=== PATIENT | female | born 1940 | race Caucasian/White ===

== ENCOUNTER 2020-02-23 16:23 | Inpatient (IN) ==
[2020-02-23] MEDS ORDERED: ONDANSETRON HCL/PF 2 MG/ML VIAL IV ONE (16:40)
[2020-02-23] MEDS ORDERED: NORMAL SALINE 1,000 ML IV ONE (16:40)
[2020-02-23] MEDS ORDERED: HYDROmorphone HCL 1 MG/ML DISP.SYRIN IV ONE (16:41)
--- NOTE | 2020-02-23 16:47 | ERNOTE ---
Abdominal HPI - Narrative Date of Service: 02/23/20 - General Chief Complaint: Abdominal Pain Time Seen by Provider: 02/23/20 16:28 Source: patient Exam Limitations: clinical condition - She appears to be in significant pain and does not seem to want to answer questions. - Immun/Allergies/Home Medications Immunizatons: IMMUNIZATION HX Immunizations Up to Date Yes History of Influenza Vaccine Yes Hx Pneumococcal Vaccination No Allergies/Adverse Reactions: Allergies lorazepam Adverse Reaction (Verified 02/23/20 16:28) unsure Home Medications: HOME MEDICATIONS Citalopram Hydrobromide [Celexa] 20 mg PO DAILY 04/29/15 [Last Taken 04/29/15] amLODIPine BESYLATE [Norvasc] 5 mg PO DAILY 04/29/15 [Last Taken 04/29/15] ascorbic acid (vitamin C) 1,000 mg tablet 1 g PO DAILY 09/03/17 [Last Taken Unknown] aspirin 81 mg tablet,delayed release 81 mg PO DAILY 09/03/17 [Last Taken Unknown] biotin 1 mg capsule 1 mg PO DAILY 09/03/17 [Last Taken Unknown] multivitamin 1 cap PO DAILY 09/03/17 [Last Taken Unknown] omega-3 fatty acids-fish oil 300 mg-1,000 mg capsule 1 cap PO BID 09/03/17 [Last Taken Unknown] Pravastatin Sodium 40 mg PO DAILY 02/23/20 [Last Taken Unknown] Sennosides [Senna] 8.6 mg PO DAILY 02/23/20 [Last Taken Unknown] - History of Present Illness Narrative: This patient is a 79-year-old female who arrived by ambulance with severe abdominal pain. She said the pain began about 1 PM, 3.5 hours ago. The pain began in the lower abdomen and is since spread up to the top. She has difficult time describing the pain but says that it is a terrible pain and cramping. The pain is worse with deep breath and movement. It gets sharp. She has been nauseated. She vomited a couple hours ago. She feels like she needs to have a bowel movement. She gave herself an enema without results. She has not had anything like this in the past. She denies prior abdominal surgery. She denies fever. She denies urinary symptoms. Review of Systems - Narrative Narrative: She has an allergy listed to lorazepam but does know the reaction. - Review of Systems Constitutional: Absent: recent illness, fever ENT: Absent: ear pain, nose congestion, nasal drainage, sore throat Respiratory: Present: other - Her abdomen hurts worse when she breathes.. Absent: shortness of breath, cough Cardiology: Absent: chest pain, syncope Gastrointestinal/Abdominal: Present: nausea, vomiting, abdominal pain. Absent: diarrhea, constipation Genitourinary: Absent: frequency, pain, dysuria, hematuria Musculoskeletal: Present: no symptoms reported Skin: Absent: rash Neurological: Absent: headache Endocrine: Present: other - No diabetes Hematologic/Lymphatic: Present: other - No blood thinner Psych: Present: no symptoms reported Medical History (Last Reviewed 02/23/20 @ 16:45 by Colin Murphy MD) Arthritis Onset Date: ~07/08/12 arthritic changes rt 3rd finger tip Cough Depression Hypertension Onset Date: ~06/23/12 Infection of shoulder Onset Date: 04/26/17 Right shoulder Leg pain Onset Date: ~08/11/13 left, radicular, dramatically improved Lower back pain Onset Date: ~08/30/13 with left leg radicaulopathy-improving Surgical History: Surgical History (Last Reviewed 02/23/20 @ 16:45 by Colin Murphy MD) History of colonoscopy Onset Date: 08/12/12 Dr. Lua. Normal History of colonoscopy Onset Date: 04/05/07 Dr. Lua, with Biopsy. Hyperplastic polyp. Scattered diverticulosis History of tonsillectomy as a child [place] teeth extracted Family History: Family History (Last Reviewed 02/23/20 @ 16:45 by Colin Murphy MD) Brother , age 30's MVA No problems noted. Brother Cancer Prostate Daughter Alive and well Father Cancer, Onset Age: 70 Prostate Mother Cancer, Onset Age: 69 lung cancer Sister Scleroderma Social History: (Last Reviewed 02/23/20 @ 16:45 by Colin Murphy MD) Social History: Marital status: household members: spouse number of children: 2 current occupational status: retired Service: No Tobacco: Smoking Status: Former smoker how long ago did patient quit smokin years Alcohol: alcohol intake: current Alcohol type: beer alcohol intake frequency: 0-2 drinks per day Substance Use: substance use type: does not use Dietary Habits: caffeine: Yes caffeine comment: x2 daily Type: coffee Exercise: frequency: does not exercise Physical Exam - Physical Exam General Appearance: Present: wd/wn, alert, moderate distress - She appears to be in pain. Head Exam: Present: normal inspection, no evidence of injury Eye Exam: Normal inspection: bilateral - She lies on the table with her eyes closed. Ears, Nose, Throat: Present: normal ENT inspection Neck: Present: normal inspection, supple. Absent: lymphadenopathy (R), lymphadenopathy (L) Respiratory: Present: no respiratory distress, normal breath sounds, no accessory muscle use, lungs clear Cardiovascular/Chest: Present: regular rate, rhythm, no murmur Gastrointestinal/Abdominal: Present: normal bowel sounds, nondistended, soft, no organomegaly, tenderness - She has diffuse tenderness with palpation., guarding - She has voluntary guarding throughout.. Absent: rebound Back Exam: Present: normal inspection, normal range of motion Extremity Exam: Present: normal inspection, non-tender, no edema Neurological Exam: Present: alert, oriented. Absent: normal mood/affect - Her mood and affect are consistent with being in pain. Skin Exam: Present: normal color, warm/dry Progress - Date and Time Seen: Date and Time: 02/23/20 19:26 Dr. Short agreed to take care of the patient in the hospital. The patient is agreeable to staying. - Results and Orders Patient's Lab Results:: I have reviewed the patient's lab results. Results and Orders: Laboratory Tests 02/23/20 02/23/20 02/23/20 16:55 16:55 16:55 WBC 15.2 H RBC 5.31 Hgb 15.7 Hct 50.0 H MCV 94.2 MCH 29.6 MCHC 31.4 L RDW 13.1 Plt Count 308 MPV 10.5 Neutrophils % (Manual) 73 Band Neuts % (Manual) 18 H Lymphocytes % (Manual) 6 L Monocytes % (Manual) 2 Eosinophils % (Manual) 1 Neutrophils # (Manual) 11.1 H Lymphocytes # (Manual) 0.9 L Monocytes # (Manual) 0.3 Eosinophils # (Manual) 0.2 Nucleated RBCs 1.0 Platelet Estimate Normal Giant Platelets Trace RBC Morphology Normal Sodium 142 Plasma Sodium 143 H Potassium 3.7 Chloride 104 Carbon Dioxide 25.1 Anion Gap 16.6 H BUN 18 Creatinine 1.01 Est GFR (Non-Af Amer) 56 L BUN/Creatinine Ratio 17.8 Random Glucose 140 H Lactic Acid, Venous 2.5 H* Calcium 9.3 Calcium Adj for Albumin 9.1 Total Bilirubin 0.7 AST 22 ALT 18 L Alkaline Phosphatase 74 Total Protein 7.4 Albumin 3.9 Lipase 128 - Vital Signs Patient's Vital Signs:: I have reviewed the patient's vital signs. Vital Signs: Vital Signs 02/23/20 16:24 Temperature 36.6 C Pulse Rate 78 Respiratory Rate 20 O2 Sat by Pulse Oximetry 97 - CT/Ultrasound CT/Ultrasound Narrative: CT Abdomen/Pelvis W/C *~ Exam Date: 02/23/2020 18:15 Ordering Physician: Colin Murphy MD CT Abdomen/Pelvis W/C * History: Severe abdominal pain nausea. Vomiting. Diarrhea. Pain after eating. Technique: Contrast enhanced CT images of the abdomen during the portal venous phase were obtained. Excretory phase images of the abdomen and pelvis were also obtained. Coronal reconstructions are submitted. Oral contrast was also administered. Individualized dose optimization technique was used for the performed procedure including automated exposure control, adjustment of the mA and/or kV according to patient size and/or the iterative reconstruction technique. Comparison: CT dated May 02, 2009. Findings: There are right middle lobe, right greater than left lower lung peripheral tree-in-bud and groundglass opacities, which may represent a infectious or inflammatory bronchiolitis or sequela of aspiration pneumonitis. Borderline card iomegaly. Liver, spleen, adrenal glands are unremarkable. Mild prominence of the pancreatic duct measuring 4 mm. No visualized pancreatic mass. No peripancreatic inflammatory change. The gallbladder is mildly distended with suggestion of focal layering sludge. No CT evidence of cholecystitis. The kidneys are unremarkable. Symmetric nephrograms. There is reflux of oral contrast into the distal esophagus. There is gastric distention with mild gastric antral wall thickening. Mild distention of the proximal duodenum. Fluid-filled distended, nondilated loops of small bowel noted in the left abdomen with mild wall thick. Loops of small bowel in the right abdomen are decompressed with a transition point identified in the right abdomen (axial image 56). There is mild diffuse mesenteric edema. No pneumatosis or portal venous gas. No CT evidence of appendicitis. Scattered air and stool throughout the colon. There is bowel wall thickening involving the ascending colon, hepatic flexure, mid to distal transverse colon, splenic flexure, descending colon, and most pronounced at the mid sigmoid colon and high rectum. There is pericolonic inflammatory change. No pneumatosis or portal venous gas. Calcified fibroid uterus. Urinary bladder is unremarkable. Small amount of pelvic free fluid. Normal caliber abdominal aorta. The abdominal aorta is intact. Scattered atherosclerotic changes. 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 Main portal vein, splenic vein, superior mesenteric vein are patent. No significant lymphadenopathy. No pneumoperitoneum. Low volume ascites with perihepatic ascites and free fluid in the bilateral lateral colonic gutters. No fluid collections. No hemoperitoneum. Small fat-containing umbilical hernia. No acute osseous findings. Degenerative changes noted. 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 IMPRESSION:Nonspecific pancolitis, most pronounced at the level of the sigmoid colon and high rectum. Mesenteric edema. There is no pneumatosis or portal venous gas. No free air. Additionally, there are findings concerning for a infectious or inflammatory enteritis and at least a partial small bowel obstruction as there is a transition point in the right abdomen. There is nonspecific gastric distention. Also, there is gastric antral wall thickening; correlate for peptic ulcer disease. Low volume ascites. Abnormal appearance of the lung bases, as above. Gastroesophageal reflux. Additional findings and comments are as above. Electronically signed by Chet Leach D.O.. - Progress/Reassessment Chief Complaint: Abdominal Pain Departure Clinical Impression: Abdominal pain, Lactic acidosis, Pancolitis, Small bowel obstruction - Departure Disposition: Still a patient Condition: Stable Referrals: Catherine Petit MD [Primary Care Provider] -
[2020-02-23 17:01] LABS: Hemoglobin 15.7 gm/dL (12.5-16.0); Mean Cell Volume 94.2 fl (78-100); Mean Corpuscular Hemoglobin 29.6 pg (27-31); Mean Corpuscular Hgb Conc 31.4 g/dl (32-36); Mean Platelet Volume 10.5 fl (8-12.5); Platelet Count 308 K/mm3 (150-450); Red Blood Count 5.31 M/mm3 (4.2-5.4); Red Cell Distribution Width 13.1 % (11.5-14.0); White Blood Count 15.2 K/mm3 (4.0-10.5)
[2020-02-23 17:05] LABS: Total Cells Counted 100
[2020-02-23] MEDS ORDERED: DIATRIZOATE MEGLUMINE, SODIUM 30 ML BTL ONE (17:12)
[2020-02-23] MEDS ORDERED: DIATRIZOATE MEGLUMINE, SODIUM 30 ML BTL PO ONE (17:13)
[2020-02-23 17:15] LABS: Albumin * 3.9 gm/dl (3.4-5.0); Anion Gap 16.6 mmol/L (6.8-13.8); BUN/Creatinine Ratio 17.8 (9.0-21.6); Bilirubin, Total 0.7 mg/dL (0.0-1.1); Ca. Corrected For Albumin 9.1 mg/dL (8.4-10.2); Calcium * 9.3 mg/dL (7.9-10.9); Carbon Dioxide 25.1 mmol/L (24-32.6); Potassium 3.7 mmol/L (3.4-4.6); Total Protein 7.4 gm/dL (6.2-8.2)
[2020-02-23 17:26] LABS: Band 18 % (0-2.0); Eosinophil 1 % (0-3); Lymphocyte 6 % (20-51); Monocyte 2 % (0-9); Neutrophil 73 % (42-75); Neutrophil # 11.1 K/mm3 (1.3-6.0)
[2020-02-23 17:30] LABS: Giant Platelets Trace; Platelet Estimate Normal (NORMAL); RBC Morphology Normal (NORMAL)
[2020-02-23] MEDS ORDERED: HYDROmorphone HCL 1 MG/ML DISP.SYRIN IV PRN (18:47)
[2020-02-23] MEDS: HYDROmorphone HCL 1 MG/ML DISP.SYRIN IV PRN ×3 (18:55→20:03)
[2020-02-23] MEDS ORDERED: PIPERACILLIN SODIUM/TAZOBACTAM 4.5 GM in DEXTROSE 5 % IN WATER 100 ML IV ONE ×2 (19:02)
[2020-02-23 21:45] LABS: Urine Bilirubin 1 mg/dl (NEGATIVE); Urine Blood Negative /ul (NEGATIVE); Urine Ketone 5 mg/dL (NEGATIVE); Urine Nitrite Negative (NEGATIVE); Urine Protein Negative (NEGATIVE); Urine Specific Gravity 1.015 SP.GR. (1.005-1.010); Urine Urobilinogen Normal (NORMAL)
[2020-02-23 21:55] LABS: Urine Appearance Clear (CLEAR); Urine Color Dark Yellow
[2020-02-23 21:56] LABS: Urine RBC None Seen /hpf (0-5); Urine WBC None Seen /hpf (0-5)
[2020-02-23 21:57] LABS: Urine Bacteria TRACE
[2020-02-24] MEDS: HYDROmorphone HCL 1 MG/ML DISP.SYRIN IV PRN (06:57)
[2020-02-24] MEDS ORDERED: PHENOL 180 SPRAY BTL MM PRN (11:22)
[2020-02-24 11:59] LABS: Hematocrit 45.2 % (37.0-47.0); Hemoglobin 14.1 gm/dL (12.5-16.0); Mean Cell Volume 95.6 fl (78-100); Mean Corpuscular Hemoglobin 29.8 pg (27-31); Mean Corpuscular Hgb Conc 31.2 g/dl (32-36); Mean Platelet Volume 10.6 fl (8-12.5); Neutrophil # 12.9 K/mm3 (1.3-6.0); Neutrophil % 82.1 % (42-75.0); Platelet Count 282 K/mm3 (150-450); Red Blood Count 4.73 M/mm3 (4.2-5.4); Red Cell Distribution Width 13.3 % (11.5-14.0); White Blood Count 15.6 K/mm3 (4.0-10.5)
[2020-02-24 12:15] LABS: Albumin * 3.4 gm/dl (3.4-5.0); Anion Gap 15.4 mmol/L (6.8-13.8); BUN/Creatinine Ratio 22.1 (9.0-21.6); Bilirubin, Total 0.6 mg/dL (0.0-1.1); Ca. Corrected For Albumin 9.3 mg/dL (8.4-10.2); Calcium * 9.1 mg/dL (7.9-10.9); Carbon Dioxide 24.9 mmol/L (24-32.6); Potassium 4.3 mmol/L (3.4-4.6); Total Protein 7.2 gm/dL (6.2-8.2)
[2020-02-24] MEDS: LEVOFLOXACIN IN DEXTROSE 5 % 750 MG/150 ML BAG IV SCH (12:46)
[2020-02-24] MEDS ORDERED: KETOROLAC TROMETHAMINE 30 MG/ML VIAL IV PRN (15:58)
--- NOTE | 2020-02-24 21:45 | HP ---
Chief Complaint - Chief Complaint Date of Service: 02/24/20 Time of Service: 09:00 Chief Complaint: Abdominal pain History of Present Illness: Leni is a 79yo female that prsents with abdominal pain that began yesterday. She reports attempting to have a bowel movement but was only able to pass liquid stool. She denies fever, bloody stool. She does admit to nausea and vomiting. Emesis was food contents, non-bloody. She denies any recent change in diet, sick contacts, or new medications. She has not had abdominal surgeries. No history of bowel disease or obstruction. She reports to passing gas. She reports normal colonoscopies but believes she gets them every 3 years. She denies colon polyps, cancer, or family history of colon disease. She denies coughing or shortness of breath but does report to abdominal pain with deep inhalation. She presented to the ER due to the abdominal pain. Labs were significant for elevated WBC and CT of abdomen that showed colitis and partial small bowel obstruction. She was given NG tube and chest xray was completed which showed bilateral lower lob opacities. She reports history of tree and bud inflammation in chest xrays in the past. Medical History (Last Reviewed 02/23/20 @ 21:47 by Cecile Martines RN) Arthritis Onset Date: ~07/08/12 arthritic changes rt 3rd finger tip Cough Depression Hypertension Onset Date: ~06/23/12 Infection of shoulder Onset Date: 04/26/17 Right shoulder Leg pain Onset Date: ~08/11/13 left, radicular, dramatically improved Lower back pain Onset Date: ~08/30/13 with left leg radicaulopathy-improving Surgical History: Surgical History (Last Reviewed 02/23/20 @ 21:47 by Cecile Martines RN) History of colonoscopy Onset Date: 08/12/12 Dr. Lua. Normal History of colonoscopy Onset Date: 04/05/07 Dr. Lua, with Biopsy. Hyperplastic polyp. Scattered diverticulosis History of tonsillectomy as a child [place] teeth extracted Family History: Family History (Last Updated 02/23/20 @ 21:46 by Cecile Martines, RN) Brother , age 30's MVA No problems noted. Brother Cancer Prostate Daughter Alive and well 2 daughters Father Cancer, Onset Age: 70 Prostate Mother Cancer, Onset Age: 69 lung cancer Sister Scleroderma Social History: (Last Reviewed 02/23/20 @ 21:47 by Cecile Martines RN) Social History: Marital status: household members: spouse number of children: 2 current occupational status: retired Service: No Tobacco: Smoking Status: Former smoker how long ago did patient quit smokin years Alcohol: alcohol intake: current Alcohol type: beer alcohol intake frequency: 0-2 drinks per day Substance Use: substance use type: does not use Dietary Habits: caffeine: Yes caffeine comment: x2 daily Type: coffee Exercise: frequency: does not exercise Review Of Systems (GEN) - Review of Systems Generalized/Overall Review: Absent: Weakness, Chills, Fever, Fatigue, Weight loss, Weight gain EENTM: Present: No Symptoms Reported Respiratory: Absent: Cough, Shortness of Breath Cardiac: Absent: Chest Pain, Edema Abdominal: Present: Nausea, Vomiting, Abdominal Pain. Absent: Hematemesis, M pranav, Bright blood from rectum Genitourinary: Absent: Burning, Frequency Musculoskeletal: Present: No Symptoms Reported Neurological: Present: Headache. Absent: Weakness Skin: Present: No Symptoms Reported Endocrine: Present: No Symptoms Reported Immunizations: IMMUNIZATION HX Immunizations Up to Date Yes History of Influenza Vaccine Yes Hx Pneumococcal Vaccination No Allergies/Adverse Reactions: Allergies Allergy/AdvReac Type Severity Reaction Status Date / Time lorazepam AdvReac Verified 02/23/20 16:28 Home Medications: HOME MEDICATIONS Citalopram Hydrobromide [Celexa] 30 mg PO DAILY 04/29/15 [Last Taken 04/29/15] amLODIPine BESYLATE [Norvasc] 5 mg PO DAILY 04/29/15 [Last Taken 04/29/15] aspirin 81 mg tablet,delayed release 81 mg PO DAILY 09/03/17 [Last Taken Unknown] Pravastatin Sodium 40 mg PO DAILY 02/23/20 [Last Taken Unknown] Sennosides [Senna] 17.2 mg PO DAILY 02/23/20 [Last Taken Unknown] Dextromethorphan Polistirex [Delsym] 90 ml PO BID PRN 02/24/20 [Last Taken Unknown] Multivitamin [Multivitamins] 1 ea PO DAILY 02/24/20 [Last Taken Unknown] [place] Oil/[place]-3 Fatty Acids [Fish Oil] 1,200 mg PO Q7D 02/24/20 [Last Taken Unknown] Exam - Exam Vital Signs: Vital Signs - Last Taken Temp 36.4 C 02/24/20 18:53 Pulse 75 02/24/20 18:53 Resp 16 02/24/20 18:53 BP 125/44 02/24/20 18:53 Pulse Ox 93 02/24/20 18:53 Comprehensive Narrative: NG tube in place set to suction Constitutional: Present: Alert, Oriented x3, Cooperative ENT Exam: Present: hearing grossly normal Eye Exam: bilateral eye: normal inspection Respiratory: Present: chest non-tender, lungs clear, normal breath sounds, no respiratory distress Cardiovascular/Chest: Present: regular rate, rhythm, no murmur Peripheral Pulses: radial (R): 2+, radial (L): 2+ Abdomen: Present: soft, tender - diffuse, hypoactive Extremity: Present: normal inspection Skin Exam: Present: normal color, warm/dry, no cyanosis Lymphatic: Present: no adenopathy Neurologic: Present: alert, normal mood/affect, oriented x 3 Appearance: Present: appropriate appearance, appropriate insight Eye contact: Present: cooperative, good eye contact, normal speech Thoughts: Present: normal thought pattern, no apparent hallucination Diagnostic Studies: Abnormal Lab Results 02/23/20 02/24/20 02/24/20 Range/Units 21:30 11:52 11:52 WBC 15.6 H (4.0-10.5) K/mm3 MCHC 31.2 L (32-36) g/dl Immature Gran # (Auto) 0.04 H (0.000-0.0310) K/mm3 Neutrophils % 82.1 H (42-75.0) % Lymphocytes % 8.4 L (20-51) % Neutrophils # 12.9 H (1.3-6.0) K/mm3 Lymphocytes # 1.31 L (1.5-3.5) k/mm3 Monocytes # 1.4 H (0.0-1.0) k/mm3 Anion Gap 15.4 H (6.8-13.8) mmol/L BUN/Creatinine Ratio 22.1 H (9.0-21.6) Random Glucose 117 H (70-110) mg/dL Urine Bilirubin 1 H (NEGATIVE) mg/dl Microbiology 02/23/20 16:55 Blood Culture - Preliminary Blood NO GROWTH 24 HOURS 02/23/20 16:40 Blood Culture - Preliminary Blood NO GROWTH 24 HOURS Laboratory Results WBC 15.6 K/mm3 (4.0-10.5) H 02/24/20 11:52 RBC 4.73 M/mm3 (4.2-5.4) 02/24/20 11:52 Hgb 14.1 gm/dL (12.5-16.0) 02/24/20 11:52 Hct 45.2 % (37.0-47.0) 02/24/20 11:52 MCV 95.6 fl (78-100) 02/24/20 11:52 MCH 29.8 pg (27-31) 02/24/20 11:52 MCHC 31.2 g/dl (32-36) L 02/24/20 11:52 RDW 13.3 % (11.5-14.0) 02/24/20 11:52 Plt Count 282 K/mm3 (150-450) 02/24/20 11:52 MPV 10.6 fl (8-12.5) 02/24/20 11:52 Immature Gran % (Auto) 0.30 % (0.001-0.429) 02/24/20 11:52 Immature Gran # (Auto) 0.04 K/mm3 (0.000-0.0310) H 02/24/20 11:52 Neutrophils % 82.1 % (42-75.0) H 02/24/20 11:52 Neutrophils % (Manual) 73 % (42-75) 02/23/20 16:55 Band Neuts % (Manual) 18 % (0-2.0) H 02/23/20 16:55 Lymphocytes % 8.4 % (20-51) L 02/24/20 11:52 Lymphocytes % (Manual) 6 % (20-51) L 02/23/20 16:55 Monocytes % 8.8 % (0.0-9) 02/24/20 11:52 Monocytes % (Manual) 2 % (0-9) 02/23/20 16:55 Eosinophils % 0.1 % (0.0-3.0) 02/24/20 11:52 Eosinophils % (Manual) 1 % (0-3) 02/23/20 16:55 Basophils % 0.3 % (0.0-1.0) 02/24/20 11:52 Nucleated RBC % 0.0 k/mm3 (0-1) 02/24/20 11:52 Neutrophils # 12.9 K/mm3 (1.3-6.0) H 02/24/20 11:52 Neutrophils # (Manual) 11.1 K/mm3 (1.3-6.0) H 02/23/20 16:55 Lymphocytes # 1.31 k/mm3 (1.5-3.5) L 02/24/20 11:52 Lymphocytes # (Manual) 0.9 k/mm3 (1.5-3.5) L 02/23/20 16:55 Monocytes # 1.4 k/mm3 (0.0-1.0) H 02/24/20 11:52 Monocytes # (Manual) 0.3 k/mm3 (0.0-1.0) 02/23/20 16:55 Eosinophils # 0.0 k/mm3 (0.0-0.7) 02/24/20 11:52 Eosinophils # (Manual) 0.2 k/mm3 (0.0-0.7) 02/23/20 16:55 Absolute Basophils 0.0 k/mm3 (0.0-0.1) 02/24/20 11:52 Nucleated RBCs 1.0 % (0-1) 02/23/20 16:55 Platelet Estimate Normal (NORMAL) 02/23/20 16:55 Giant Platelets Trace 02/23/20 16:55 RBC Morphology Normal (NORMAL) 02/23/20 16:55 Sodium 141 mmol/L (132-142) 02/24/20 11:52 Plasma Sodium 141 mmol/L (130-142) 02/24/20 11:52 Potassium 4.3 mmol/L (3.4-4.6) 02/24/20 11:52 Chloride 105 mmol/L (97-106) 02/24/20 11:52 Carbon Dioxide 24.9 mmol/L (24-32.6) 02/24/20 11:52 Anion Gap 15.4 mmol/L (6.8-13.8) H 02/24/20 11:52 BUN 21 mg/dL (3-23) 02/24/20 11:52 Creatinine 0.95 mg/dL (0.4-1.4) 02/24/20 11:52 Est GFR (Non-Af Amer) 61 mL/min (60-130) 02/24/20 11:52 BUN/Creatinine Ratio 22.1 (9.0-21.6) H 02/24/20 11:52 Random Glucose 117 mg/dL (70-110) H 02/24/20 11:52 Lactic Acid, Venous 0.9 mmol/L (0.4-2.0) 02/23/20 19:40 Calcium 9.1 mg/dL (7.9-10.9) 02/24/20 11:52 Calcium Adj for Albumin 9.3 mg/dL (8.4-10.2) 02/24/20 11:52 Total Bilirubin 0.6 mg/dL (0.0-1.1) 02/24/20 11:52 AST 28 U/L (0-48) 02/24/20 11:52 ALT 19 U/L (19-67) 02/24/20 11:52 Alkaline Phosphatase 61 U/L (50-170) 02/24/20 11:52 Total Protein 7.2 gm/dL (6.2-8.2) 02/24/20 11:52 Albumin 3.4 gm/dl (3.4-5.0) 02/24/20 11:52 Lipase 128 U/L (73-393) 02/23/20 16:55 Procalcitonin 0.40 ng/mL (0.05-0.50) 02/23/20 16:55 Urine Color Dark yellow 02/23/20 21:30 Urine Appearance Clear (CLEAR) 02/23/20 21:30 Urine pH 5.0 pH (5.0-7.0) 02/23/20 21:30 Ur Specific [place] 1.015 SP.GR. (1.005-1.010) 02/23/20 21:30 Urine Protein Negative mg/dL (NEGATIVE) 02/23/20 21:30 Urine Glucose (UA) Negative mg/dL (NEGATIVE) 02/23/20 21:30 Urine Ketones 5 mg/dL (NEGATIVE) 02/23/20 21:30 Urine Blood Negative /ul (NEGATIVE) 02/23/20 21:30 Urine Nitrate Negative (NEGATIVE) 02/23/20 21:30 Urine Bilirubin 1 mg/dl (NEGATIVE) H 02/23/20 21:30 Urine Urobilinogen Normal EU/dl (NORMAL) 02/23/20 21:30 Ur Leukocyte Esterase Negative /ul (NEGATIVE) 02/23/20 21:30 Urine RBC None seen /hpf (0-5) 02/23/20 21:30 Urine WBC None seen /hpf (0-5) 02/23/20 21:30 Ur Epithelial Cells Trace /hpf (0-5) 02/23/20 21:30 Urine Bacteria Trace (NONE) 02/23/20 21:30 Urine Culture Comments No culture indicated 02/23/20 21:30 SARS-CoV-2 (PCR) Not detected (NotDetected) 02/23/20 19:13 Assessment/Plan - Narrative Narrative: Will admit to acute inpatient status due to small bowel obstruction. Unknown etiology. No abdominal surgery history. Will make NPO, treat with NG tube and bowel rest. There is evidence of pancolitis and possible lung inflitrates although it sounds that this could be a chronic finding. Will treat with levaquin to cover GI and pulmonary pathogens in case this is an infectious colitis. Will advance diet as tolerated and clamp NG when improving. Holding home medications due to bowel rest, will restart as needed. - Assessment/Plan (1) Pancolitis Problem: Acute (2) Small bowel obstruction Problem: Acute (3) Essential hypertension Problem: Chronic
[2020-02-25 07:49] LABS: Hematocrit 41.1 % (37.0-47.0); Mean Cell Volume 95.4 fl (78-100); Mean Corpuscular Hemoglobin 30.2 pg (27-31); Mean Corpuscular Hgb Conc 31.6 g/dl (32-36); Mean Platelet Volume 10.8 fl (8-12.5); Neutrophil # 9.5 K/mm3 (1.3-6.0); Neutrophil % 83.7 % (42-75.0); Platelet Count 221 K/mm3 (150-450); Red Blood Count 4.31 M/mm3 (4.2-5.4); Red Cell Distribution Width 13.3 % (11.5-14.0); White Blood Count 11.3 K/mm3 (4.0-10.5)
[2020-02-25 08:02] LABS: Anion Gap 12.6 mmol/L (6.8-13.8); BUN/Creatinine Ratio 26.2 (9.0-21.6); Bilirubin, Total 0.8 mg/dL (0.0-1.1); Ca. Corrected For Albumin 9.3 mg/dL (8.4-10.2); Calcium * 8.8 mg/dL (7.9-10.9); Carbon Dioxide 26.9 mmol/L (24-32.6); Potassium 3.5 mmol/L (3.4-4.6); Total Protein 6.7 gm/dL (6.2-8.2)
[2020-02-25] MEDS: LEVOFLOXACIN IN DEXTROSE 5 % 750 MG/150 ML BAG IV SCH (12:47)
[2020-02-25] MEDS: LEVOFLOXACIN 750 MG TABLET PO SCH (13:02)
--- NOTE | 2020-02-25 21:24 | PN ---
Subjective - Date and Time Seen Date: 02/25/20 Time: 08:00 Subjective Narrative: Leni reports feeling better today. Pain improved, she has an appetite, she is passing stool and gas. Objective - Vitals Vitals: Last Vital Signs Temp 37.2 C 02/25/20 16:02 Pulse 81 02/25/20 16:02 Resp 16 02/25/20 16:02 BP 107/45 02/25/20 16:02 Pulse Ox 96 02/25/20 16:02 - Abnormal Lab Findings Abnormal Lab Findings: Abnormal Lab Results 02/25/20 02/25/20 Range/Units 07:20 07:20 WBC 11.3 H D (4.0-10.5) K/mm3 MCHC 31.6 L (32-36) g/dl Immature Gran # (Auto) 0.04 H (0.000-0.0310) K/mm3 Neutrophils % 83.7 H (42-75.0) % Lymphocytes % 7.5 L (20-51) % Neutrophils # 9.5 H (1.3-6.0) K/mm3 Lymphocytes # 0.85 L (1.5-3.5) k/mm3 BUN/Creatinine Ratio 26.2 H (9.0-21.6) Albumin 3.0 L (3.4-5.0) gm/dl - Exam Constitutional: Present: Alert, Oriented x3, Cooperative ENT Exam: Present: hearing grossly normal Respiratory: Present: lungs clear, normal breath sounds Cardiovascular/Chest: Present: regular rate, rhythm, no murmur Abdomen: Present: Normal bowel sounds, soft, nontender, nondistended Skin Exam: Present: normal color, warm/dry, no cyanosis Appearance: Present: appropriate appearance, appropriate insight Eye contact: Present: cooperative, good eye contact, normal speech Thoughts: Present: normal thought pattern, no apparent hallucination Assessment/Plan Plan Narrative: Feeling better. Xrays completed, no pneumonia. Bowel obstruction resolved on xray. Will remove NG tube and advance diet to clears. Transition Levaquin to oral. If tolerating clears may advance diet as tolerated. Plan to discharge to home tomorrow. - Problems/Diagnosis (1) Pancolitis Problem: Acute (2) Small bowel obstruction Problem: Acute (3) Essential hypertension Problem: Chronic
[2020-02-26] MEDS: LEVOFLOXACIN 750 MG TABLET PO SCH (10:30)
--- NOTE | 2020-02-26 11:35 | DS ---
(1) Pancolitis Problem: Acute (2) Small bowel obstruction Problem: Resolved (3) Essential hypertension Problem: Chronic Date of Discharge:: 02/26/20 Hospital Course: Leni was admitted for small bowel obstruction and pancolitis of unknown etiology. She was treated with bowel rest using NPO status and NG tube to suction. She was started on Levaquin to treat for possible infectious colitis. She improved and NG was clamped and diet was advanced. She tolerated this and NG was removed and diet further advanced. She will be discharged to home and I will continue her on levaquin to cover for infectious colitis although this may have just been related to the small bowel obstruction. She will follow up with her PCP to discuss need for colonoscopy. She was recommended to take probiotics or eat yogurt while on antibiotics. Procedures Performed: see notes below - NG Tube placed Results and Findings: Pending Mircobiology Results 02/23/20 16:55 Blood Blood Culture - Preliminary NO GROWTH AFTER 48 HOURS 02/23/20 16:40 Blood Blood Culture - Preliminary NO GROWTH AFTER 48 HOURS Lab Pending Results 02/23/20 16:55: WBC 15.2 H, RBC 5.31, Hgb 15.7, Hct 50.0 H, MCV 94.2, MCH 29.6, MCHC 31.4 L, RDW 13.1, Plt Count 308, MPV 10.5, Neutrophils % (Manual) 73, Band Neuts % (Manual) 18 H, Lymphocytes % (Manual) 6 L, Monocytes % (Manual) 2, Eosinophils % (Manual) 1, Neutrophils # (Manual) 11.1 H, Lymphocytes # (Manual) 0.9 L, Monocytes # (Manual) 0.3, Eosinophils # (Manual) 0.2, Nucleated RBCs 1.0, Platelet Estimate Normal, Giant Platelets Trace, RBC Morphology Normal 02/23/20 16:55: Sodium 142, Plasma Sodium 143 H, Potassium 3.7, Chloride 104, Carbon Dioxide 25.1, Anion Gap 16.6 H, BUN 18, Creatinine 1.01, Est GFR (Non-Af Amer) 56 L, BUN/Creatinine Ratio 17.8, Random Glucose 140 H, Calcium 9.3, Calcium Adj for Albumin 9.1, Total Bilirubin 0.7, AST 22, ALT 18 L, Alkaline Phosphatase 74, Total Protein 7.4, Albumin 3.9, Lipase 128 02/23/20 16:55: Lactic Acid, Venous 2.5 H* 02/23/20 16:55: Procalcitonin 0.40 02/23/20 19:13: SARS-CoV-2 (PCR) Not detected 02/23/20 19:40: Lactic Acid, Venous 0.9 02/23/20 21:30: Urine Color Dark yellow, Urine Appearance Clear, Urine pH 5.0, Ur Specific [place] 1.015, Urine Protein Negative, Urine Glucose (UA) Negative, Urine Ketones 5, Urine Blood Negative, Urine Nitrate Negative, Urine Bilirubin 1 H, Urine Urobilinogen Normal, Ur Leukocyte Esterase Negative, Urine RBC None seen, Urine WBC None seen, Ur Epithelial Cells Trace, Urine Bacteria Trace, Urine Culture Comments No culture indicated 02/24/20 11:52: WBC 15.6 H, RBC 4.73, Hgb 14.1, Hct 45.2, MCV 95.6, MCH 29.8, MCHC 31.2 L, RDW 13.3, Plt Count 282, MPV 10.6, Immature Gran % (Auto) 0.30, Immature Gran # (Auto) 0.04 H, Neutrophils % 82.1 H, Lymphocytes % 8.4 L, Monocytes % 8.8, Eosinophils % 0.1, Basophils % 0.3, Nucleated RBC % 0.0, Neutrophils # 12.9 H, Lymphocytes # 1.31 L, Monocytes # 1.4 H, Eosinophils # 0.0, Absolute Basophils 0.0 02/24/20 11:52: Sodium 141, Plasma Sodium 141, Potassium 4.3, Chloride 105, Carbon Dioxide 24.9, Anion Gap 15.4 H, BUN 21, Creatinine 0.95, Est GFR (Non-Af Amer) 61, BUN/Creatinine Ratio 22.1 H, Random Glucose 117 H, Calcium 9.1, Calcium Adj for Albumin 9.3, Total Bilirubin 0.6, AST 28, ALT 19, Alkaline Phosphatase 61, Total Protein 7.2, Albumin 3.4 02/25/20 07:20: WBC 11.3 H D, RBC 4.31, Hgb 13.0, Hct 41.1, MCV 95.4, MCH 30.2, MCHC 31.6 L, RDW 13.3, Plt Count 221, MPV 10.8, Immature Gran % (Auto) 0.40, Immature Gran # (Auto) 0.04 H, Neutrophils % 83.7 H, Lymphocytes % 7.5 L, Monocytes % 7.6, Eosinophils % 0.6, Basophils % 0.2, Nucleated RBC % 0.0, Neutrophils # 9.5 H, Lymphocytes # 0.85 L, Monocytes # 0.9, Eosinophils # 0.1, Absolute Basophils 0.0 02/25/20 07:20: Sodium 141, Plasma Sodium 141, Potassium 3.5, Chloride 105, Carbon Dioxide 26.9, Anion Gap 12.6, BUN 22, Creatinine 0.84, Est GFR (Non-Af Amer) 70, BUN/Creatinine Ratio 26.2 H, Random Glucose 82, Calcium 8.8, Calcium Adj for Albumin 9.3, Total Bilirubin 0.8, AST 32, ALT 21, Alkaline Phosphatase 59, Total Protein 6.7, Albumin 3.0 L Discharge Location: Home Disposition: Home self-care Condition: Good Discharge Activity: Activity as tolerated Discharge Diet: Low Fiber - for the next week then regular Referrals: Catherine Petit MD [Primary Care Provider] - One Week Problem Oriented Discharge Instructions to Patient/Family: Low-Fiber Eating Plan Prescriptions (Any new or edited meds): Levofloxacin [Levaquin] 750 mg PO DAILY #7 tab Transmission Status: Pending to [facility] Complete Home Medications List: Complete Home Medication List: Citalopram Hydrobromide [Celexa] 30 mg PO DAILY 04/29/15 amLODIPine BESYLATE [Norvasc] 5 mg PO DAILY 04/29/15 aspirin 81 mg tablet,delayed release 81 mg PO DAILY 09/03/17 Pravastatin Sodium 40 mg PO DAILY 02/23/20 Sennosides [Senna] 17.2 mg PO DAILY 02/23/20 Dextromethorphan Polistirex [Delsym] 90 ml PO BID PRN 02/24/20 Multivitamin [Multivitamins] 1 ea PO DAILY 02/24/20 [place] Oil/[place]-3 Fatty Acids [Fish Oil] 1,200 mg PO Q7D 02/24/20 Levofloxacin [Levaquin] 750 mg PO DAILY #7 tab 02/26/20 Forms: Patient Portal Registration
[2020-02-26 14:00] VITALS: BP 134/42
== END 2020-02-26 13:40 | disposition home or self-care (01) | DRG 386 ==
LOC: ER 16:23 → MS 20:37
PROVIDERS: ADMIT Family Medicine; ATTEND Family Medicine